=== PATIENT | female | born 1955 | race Hispanic/Latino ===

== ENCOUNTER → 2018-10-09 | Outpatient (CLI) | payer OTHER | END | disposition home or self-care (01) | LOC: RAH 09:02 | PROVIDERS: ATTEND Family Medicine | DX: Z12.31 Encounter for screening mammogram for malignant neoplasm of breast (principal) | CPT/HCPCS: 77067 ==

== ENCOUNTER 2019-01-30 10:58 | Inpatient (IN) | payer OTHER ==
[~2019-01-30] VITALS: Ht 165.1 cm; Wt 68.6 kg
[2019-01-30] MEDS ORDERED: IPRATROPIUM/ALBUTEROL SULFATE 3 ML SOLUTION IH ONE (11:33)
[2019-01-30 11:46] LABS: CREATININE 0.7 mg/dL (0.5-1.5); POTASSIUM 5.3 mmol/L (3.5-5.1)
[2019-01-30 11:47] LABS: BASOPHILS % (AUTO) 0.7 % (0.0-5.0); EOSINOPHILS % (AUTO) 3.1 % (0.0-8.0); HEMATOCRIT 39.5 % (36-48); LYMPHOCYTES % (AUTO) 21.4 % (21.0-51.0); MEAN CORPUSCULAR HEMOGLOBIN 28.3 pg (27.0-33.0); MEAN CORPUSCULAR VOLUME 85.6 fL (79-99); MONOCYTES % (AUTO) 7.1 % (3.0-13.0); NEUTROPHILS % (AUTO) 67.7 % (40.0-77.0); NUCLEATED RED BLOOD CELLS 0.1 % (0.0-0.19); PLATELET COUNT (AUTO) 121 K/uL (130-400); RED BLOOD CELL COUNT(AUTO) 4.61 MIL/uL (4.00-5.50); RED CELL DISTRIBUTION WIDTH 13.2 % (11.0-15.5); WHITE BLOOD COUNT (AUTO) 8.2 K/uL (4.8-10.8)
[2019-01-30 11:59] LABS: ALBUMIN 3.5 g/dL (3.5-5.0); BILIRUBIN,TOTAL 0.4 mg/dL (0.2-1.0); TOTAL PROTEIN, SERUM 6.7 g/dL (6.0-8.3)
[2019-01-30 12:03] LABS: B-TYPE NATRIURETIC PEPTIDE 9 pg/mL (0-100)
[2019-01-30] MEDS ORDERED: SODIUM CHLORIDE 0.9% 100 ML IV ONE (12:08)
[2019-01-30 12:59] LABS: APPEARANCE,URINE Clear (CLEAR); BILIRUBIN,URINE Negative (NEGATIVE); COLOR,URINE Yellow (YELLOW); GLUCOSE, URINE (UA) >=1000 mg/dL (NEGATIVE); KETONES,URINE Negative (NEGATIVE); LEUKOCYTE ESTERASE ,URINE Negative (NEGATIVE); NITRATE,URINE Negative (NEGATIVE); OCCULT BLOOD,URINE Negative (NEGATIVE); PROTEIN,URINE Negative (NEGATIVE); UROBILINOGEN,URINE 0.2 mg/dL (0.2-1.0)
[2019-01-30 13:35] LABS: BACTERIA,URINE None Seen /HPF (None Seen); RBC,URINE None Seen /HPF (0-1); SQUAMOUS EPITHELIAL CELL,UR 0-2 /HPF (0-2); WBC,URINE None Seen /HPF (0-1)
[2019-01-30 13:59] LABS: INR 0.92 (0.85-1.15); PARTIAL THROMBOPLASTIN TIME 21.3 SEC (26.3-35.5); PROTHROMBIN TIME 9.5 SEC (9.6-11.6)
[2019-01-30] MEDS ORDERED: ACETAMINOPHEN 325 MG TAB PO PRN ×2 (14:00)
[2019-01-30] MEDS: AZITHROMYCIN 500MG+NS 250ML 250 ML IV SCH (14:00)
[2019-01-30] MEDS ORDERED: ONDANSETRON HCL 4 MG/2 ML VIAL IV PRN (14:00)
[2019-01-30] MEDS ORDERED: HYDRALAZINE HCL 20 MG/ML VIAL IV PRN (14:00)
[2019-01-30 15:13] LABS: CRP QUANTITATIVE 7.7 mg/L (0.00-9.0)
[2019-01-30] MEDS ORDERED: AZITHROMYCIN 500MG+NS 250ML 250 ML IV ONE (15:27)
[2019-01-30] MEDS ORDERED: CEFTRIAXONE SODIUM 1 GM ONE (15:27)
[2019-01-30] MEDS: METHYLPREDNISOLONE SOD SUCC 125MG/2ML VIAL IVP SCH ×2 (15:45→23:53)
[2019-01-30 15:59] LABS: HEMOGLOBIN A1C 9.2 % (4.0-6.0)
[2019-01-30] MEDS ORDERED: METHYLPREDNISOLONE SOD SUCC 125MG/2ML VIAL ONE (16:43)
[2019-01-30] MEDS ORDERED: SODIUM CHLORIDE 3% FOR INHALATION 4 ML/AMP VIAL.NEB IH ONE (18:09)
[2019-01-30] MEDS: IPRATROPIUM/ALBUTEROL SULFATE 3 ML SOLUTION IH SCH ×2 (18:17→23:55)
[2019-01-30] MEDS ORDERED: IOHEXOL 350 MG/ML 100ML INFUS..BTL IV ONE (18:33)
[2019-01-30 19:40] VITALS: BP 132/68
[2019-01-30] MEDS: FAMOTIDINE/PF 20 MG/2 ML VIAL IV SCH (20:54)
[2019-01-30] MEDS: METOPROLOL TARTRATE 25 MG TAB PO SCH (20:54)
[2019-01-30] MEDS ORDERED: CEFTRIAXONE SODIUM 1 GM IV SCH (21:00)
[2019-01-30] MEDS: PANTOPRAZOLE SODIUM 40 MG TABLET.DR PO SCH (21:00)
[2019-01-30 23:32] VITALS: BP 113/67
[2019-01-31] MEDS ORDERED: CEFTRIAXONE SODIUM 1 GM IV SCH (03:30)
[2019-01-31 03:56] VITALS: BP 127/66
[2019-01-31] MEDS: IPRATROPIUM/ALBUTEROL SULFATE 3 ML SOLUTION IH SCH (06:02)
[2019-01-31 07:00] VITALS: BP 126/67
[2019-01-31] MEDS: METHYLPREDNISOLONE SOD SUCC 125MG/2ML VIAL IVP SCH (07:22)
[2019-01-31] MEDS: METOPROLOL TARTRATE 25 MG TAB PO SCH ×2 (07:39→20:27)
[2019-01-31] MEDS: PANTOPRAZOLE SODIUM 40 MG TABLET.DR PO SCH ×2 (07:40→20:27)
[2019-01-31] MEDS: AZITHROMYCIN 500MG+NS 250ML 250 ML IV SCH (07:40)
[2019-01-31] MEDS: FAMOTIDINE/PF 20 MG/2 ML VIAL IV SCH (09:00)
[2019-01-31] MEDS ORDERED: PNEUMOCOCCAL VACCINE POLYVALENT 0.5 ML/VIAL [PPV] IM ONE (09:00)
[2019-01-31] MEDS ORDERED: METHYLPREDNISOLONE SOD SUCC 125MG/2ML VIAL IVP SCH (09:00)
[2019-01-31] MEDS ORDERED: ENOXAPARIN SODIUM 40 MG/0.4 ML SYRINGE SQ SCH (09:00)
[2019-01-31] MEDS ORDERED: FLU VACC QS2019-20 36MOS UP/PF 60 MCG/0.5 ML ML IM ONE (09:45)
[2019-01-31] MEDS: FUROSEMIDE 10 MG/ML 2ML VIAL IV SCH ×2 (10:30→20:27)
[2019-01-31 11:00] VITALS: BP 120/65
[2019-01-31] MEDS: IPRATROPIUM 0.5 MG/2.5 ML INH IH SCH ×4 (11:17→22:36)
--- NOTE | 2019-01-31 11:24 | NUR ---
DC PLAN VISITED WITH PATIENT. PATIENT LIVES WITH SPOUSE. INDEPENDENT ABLE TO PERFORM ADL'S. PATIENT HAS NO SERVICES OR DME'S. FEELS SAFE TO RETURN HOME. Addendum: 01/31/19 at 1125 by KIT CHU RN CM Amended: Links added.
[2019-01-31] MEDS: INSULIN HUMULIN R 100 UNIT/ML 3ML SQ SCH ×3 (11:30→21:22)
[2019-01-31] MEDS ORDERED: LORAZEPAM 2 MG/ML 1 ML VIAL IVP SCH (12:45)
[2019-01-31] MEDS ORDERED: SODIUM CHLORIDE 3% FOR INHALATION 4 ML/AMP VIAL.NEB IH ONE (14:05)
[2019-01-31] MEDS ORDERED: MILK175T2 PO (14:09)
[2019-01-31] MEDS ORDERED: ICOS1CAP PO (14:09)
[2019-01-31] MEDS ORDERED: LISI40TA4 PO (14:09)
[2019-01-31] MEDS ORDERED: EMPA1TAB15 PO (14:09)
[2019-01-31] MEDS ORDERED: ROSU20TA31 PO (14:09)
[2019-01-31] MEDS ORDERED: INSU200I4 SQ (14:09)
[2019-01-31 15:00] VITALS: BP 134/65
--- NOTE | 2019-01-31 16:00 | NUR ---
DISCONTINUED CLARKE CATHETER. 120ML OUTPUT IN CLARKE. ORDER TO D'C BY ELOISE
--- NOTE | 2019-01-31 16:12 | NUR ---
room 204 O2 extension requested by Hiro YEAGER Pt c/o sob on ambulation. Addendum: 01/31/19 at 1615 by JAMES MISTRY RT Amended: Links added.
[2019-01-31] MEDS: CEFTRIAXONE SODIUM 1 GM IV SCH ×2 (17:40→20:27)
[2019-01-31 20:22] VITALS: BP 121/60
[2019-02-01] VITALS (7 sets, daily range): BP systolic 109–136; BP diastolic 61–77
[2019-02-01] MEDS: IPRATROPIUM 0.5 MG/2.5 ML INH IH SCH ×6 (01:34→21:50)
[2019-02-01 03:36] LABS: BASOPHILS % (AUTO) 0.6 % (0.0-5.0); EOSINOPHILS % (AUTO) 1.1 % (0.0-8.0); HEMATOCRIT 34.8 % (36-48); LYMPHOCYTES % (AUTO) 15.6 % (21.0-51.0); MEAN CORPUSCULAR HEMOGLOBIN 28.2 pg (27.0-33.0); MEAN CORPUSCULAR HGB CONC 33.3 g/dL (32.0-36.0); MEAN CORPUSCULAR VOLUME 84.7 fL (79-99); MONOCYTES % (AUTO) 7.7 % (3.0-13.0); NUCLEATED RED BLOOD CELLS 0.1 % (0.0-0.19); PLATELET COUNT (AUTO) 109 K/uL (130-400); RED BLOOD CELL COUNT(AUTO) 4.11 MIL/uL (4.00-5.50); RED CELL DISTRIBUTION WIDTH 13.5 % (11.0-15.5); WHITE BLOOD COUNT (AUTO) 9.7 K/uL (4.8-10.8)
[2019-02-01 03:45] LABS: CREATININE 0.8 mg/dL (0.5-1.5); POTASSIUM 4.4 mmol/L (3.5-5.1)
[2019-02-01] MEDS ORDERED: LORAZEPAM 2 MG/ML 1 ML VIAL IVP ONE (04:45)
[2019-02-01] MEDS: INSULIN HUMULIN R 100 UNIT/ML 3ML SQ SCH ×4 (06:08→21:08)
[2019-02-01] MEDS: METOPROLOL TARTRATE 25 MG TAB PO SCH ×4 (09:00→20:06)
[2019-02-01] MEDS: CEFTRIAXONE SODIUM 1 GM IV SCH ×2 (09:56→20:04)
[2019-02-01] MEDS: PANTOPRAZOLE SODIUM 40 MG TABLET.DR PO SCH ×2 (09:57→20:06)
[2019-02-01] MEDS: FUROSEMIDE 10 MG/ML 2ML VIAL IV SCH ×2 (09:59→20:04)
[2019-02-01] MEDS: LORAZEPAM 2 MG/ML 1 ML VIAL IVP SCH (13:27)
[2019-02-01] MEDS: AZITHROMYCIN 500MG+NS 250ML 250 ML IV SCH (17:47)
--- NOTE | 2019-02-01 22:00 | NUR ---
PT IN BED, MEDICATIONS GIVEN DIRECTED. PT STATES SHE IS PENDING TO SPEAK TO DOCTOR REGARDING BONE SCAN RESULTS. PT STATES NO CONCERNS AT THIS TIME.
[2019-02-02] MEDS: IPRATROPIUM 0.5 MG/2.5 ML INH IH SCH ×6 (01:38→21:31)
[2019-02-02 03:41] VITALS: BP 125/69
[2019-02-02 04:56] LABS: HEMATOCRIT 37.6 % (36-48); MEAN CORPUSCULAR HEMOGLOBIN 27.9 pg (27.0-33.0); MEAN CORPUSCULAR VOLUME 84.6 fL (79-99); NUCLEATED RED BLOOD CELLS 0.2 % (0.0-0.19); PLATELET COUNT (AUTO) 109 K/uL (130-400); RED BLOOD CELL COUNT(AUTO) 4.45 MIL/uL (4.00-5.50); RED CELL DISTRIBUTION WIDTH 13.2 % (11.0-15.5); WHITE BLOOD COUNT (AUTO) 9.1 K/uL (4.8-10.8)
[2019-02-02 05:06] LABS: CREATININE 0.7 mg/dL (0.5-1.5); POTASSIUM 4.4 mmol/L (3.5-5.1)
[2019-02-02] MEDS: INSULIN HUMULIN R 100 UNIT/ML 3ML SQ SCH ×4 (06:50→21:16)
[2019-02-02] MEDS: LORAZEPAM 2 MG/ML 1 ML VIAL IVP SCH (06:53)
[2019-02-02 07:07] VITALS: BP 118/60
[2019-02-02] MEDS: METOPROLOL TARTRATE 25 MG TAB PO SCH ×3 (07:07→19:46)
[2019-02-02] MEDS: PANTOPRAZOLE SODIUM 40 MG TABLET.DR PO SCH ×2 (07:07→19:46)
[2019-02-02] MEDS: CEFTRIAXONE SODIUM 1 GM IV SCH ×2 (07:08→19:46)
[2019-02-02] MEDS: FUROSEMIDE 10 MG/ML 2ML VIAL IV SCH ×2 (07:08→19:46)
--- NOTE | 2019-02-02 07:35 | NUR ---
ASSESSMENT PT IS AWAKE AND ALERT, RESTING IN BED. DENIES CP DENIES SOB DENIES NV. NO VISIBLE SIGNS OF DISTRESS NOTED. BREATHING PATTERN IS EVEN AND UNLABORED. AM MEDS GIVEN, FAMILY IS AT BEDSIDE. CALL LIGHT WITHIN REACH.
[2019-02-02 11:01] VITALS: BP 116/64
--- NOTE | 2019-02-02 12:45 | NUR ---
DR HOLLIDAY ROUNDED SAW PATIEN, UPDATES GIVEN.
[2019-02-02] MEDS: AZITHROMYCIN 500MG+NS 250ML 250 ML IV SCH (13:32)
--- NOTE | 2019-02-02 14:00 | NUR ---
DC PLAN PATIENT HAD BONE SCAN HAS EXTENSIVE METS. ECHO 50%. NO CONCRETE RESPIRATORY RECS. PENDING CONSULT REC FOR DISCHARGE. Addendum: 02/02/19 at 1404 by KIT CHU RN CM Amended: Links added.
[2019-02-02 15:01] VITALS: BP 111/61
--- NOTE | 2019-02-02 17:20 | NUR ---
STATUS PT RESTING IN BED DENIES CP DENIES SOB DENIES NV NO COMPLAINTS, CALL LIGHT WITHIN REACH.,
[2019-02-02] MEDS ORDERED: PNEUMOCOCCAL VACCINE POLYVALENT 0.5 ML/VIAL [PPV] ONE (19:42)
[2019-02-02 19:53] VITALS: BP 121/77
--- NOTE | 2019-02-02 22:00 | NUR ---
PT STATES CONCERN OVER NOT BEING ALLOWED TO AMBULATE. I STATES SHE IS ABLE TO AMBULATE IF NECESSARY. PT HAS MINIMAL GBW. ABLE TO AMBULATE TO RR. NO LONGER EXPERIENCING INCREASED SOB. ABLE TO TAKE MEDICATIONS DIRECTED. NO DISTRESS NOTED. WILL NOTIFY NURSE IN THE AM. NO PT EVAL AT THIS TIME.
[2019-02-02 23:35] VITALS: BP 124/62
[2019-02-03] VITALS (11 sets, daily range): BP systolic 98–124; BP diastolic 55–75
[2019-02-03] MEDS: IPRATROPIUM 0.5 MG/2.5 ML INH IH SCH ×6 (01:26→21:59)
[2019-02-03 03:39] LABS: HEMATOCRIT 36.1 % (36-48); MEAN CORPUSCULAR HEMOGLOBIN 27.6 pg (27.0-33.0); MEAN CORPUSCULAR HGB CONC 33.2 g/dL (32.0-36.0); MEAN CORPUSCULAR VOLUME 83.3 fL (79-99); NUCLEATED RED BLOOD CELLS 0.1 % (0.0-0.19); PLATELET COUNT (AUTO) 111 K/uL (130-400); RED BLOOD CELL COUNT(AUTO) 4.33 MIL/uL (4.00-5.50); RED CELL DISTRIBUTION WIDTH 13.6 % (11.0-15.5); WHITE BLOOD COUNT (AUTO) 8.3 K/uL (4.8-10.8)
[2019-02-03 03:46] LABS: CREATININE 0.8 mg/dL (0.5-1.5); POTASSIUM 4.3 mmol/L (3.5-5.1)
[2019-02-03] MEDS: INSULIN HUMULIN R 100 UNIT/ML 3ML SQ SCH ×4 (06:53→21:39)
[2019-02-03] MEDS: PANTOPRAZOLE SODIUM 40 MG TABLET.DR PO SCH ×2 (09:23→21:33)
[2019-02-03] MEDS: CEFTRIAXONE SODIUM 1 GM IV SCH ×2 (09:24→21:32)
[2019-02-03] MEDS: FUROSEMIDE 10 MG/ML 2ML VIAL IV SCH ×2 (09:24→21:32)
[2019-02-03] MEDS: METOPROLOL TARTRATE 25 MG TAB PO SCH ×3 (09:24→21:32)
[2019-02-03] MEDS: LORAZEPAM 2 MG/ML 1 ML VIAL IVP SCH (09:26)
--- NOTE | 2019-02-03 09:27 | NUR ---
DR. Kinsey SAHA IN ROOM SPEAKING WITH PT. AND FEMALE FAMILY MEMBER AT BEDSIDE RE:PLAN OF CARE. QUESTIONS ANSWERED BY DR. SAHA; VERBALIZED MUTUAL UNDERSTANDING.
[2019-02-03] MEDS: AZITHROMYCIN 500MG+NS 250ML 250 ML IV SCH (13:30)
--- NOTE | 2019-02-03 14:05 | NUR ---
TO CT SCAN VIA BED WITH O2 IN PLACE, ACCOMPANIED BY KULDIP, ARMOR SENIOR SERGEANT.
--- NOTE | 2019-02-03 15:12 | NUR ---
RETURNED TO ROOM VIA BED ACCOMPANIED BY KULDIP, ACID CONDENSER. PT. AAOX3, RESP.'S EVEN AND UNLABORED. DENIES ANY C/O SOB, DENIES ANY CURRENT PAIN. RIGHT LOWER BACK/LUMBAR AREA WITH LIGHT DRSG IN PLACE, D/I. CALL LIGHT WITHIN REACH.
--- NOTE | 2019-02-03 15:30 | NUR ---
CT GD BONE MARROW ASP/BX PROCEDURE PERFORMED BY DR Manish FRANZ. PUNCTURE SITE RT BUTTOCK AND PATIENT TOLERATED PROCEDURE WELL. UNALBE TO ASPIRATE BONE MARROW BUT CORE SAMPLE COLLECTED IN [facility] AND SENT TO LAB. END OF PROCEDURE AT 1515. BIOPSY NEEDLE REMOVED AND DRESSING APPLIED. NO BLEEDING NOTED. REPORT GIVEN TO Dank ARENAS RN AND PATIENT TRANSPORTED TO [facility] VIA BED AT 1530. AAO X3 WITH NO C/O PAIN.
--- NOTE | 2019-02-03 17:30 | NUR ---
SITTING UP IN BED EATING DINNER W/O C/O. DRSG TO LUMBAR AREA CONTINUES IN PLACE, D/I. DENIES ANY C/O AT THIS TIME. CALL LIGHT WITHIN REACH.
--- NOTE | 2019-02-03 19:34 | NUR ---
ASSESSMENT PATIENT IS RESTING IN THE CHAIR. NO COMPLAINTS OF PAIN AT THIS TIME. NO SIGNS OF DISTRESS. NO SHORTNESS OF BREATH. S/P BIOPSY TO LUMBAR AREA. CLEAN DRY AND INTACT. CALL LIGHT WITHIN REACH. REINFORCED PATIENT TO CALL FOR ANY NEEDS. NO QUESTIONS, CONCERNS, OR NEEDS AT THIS TIME.
[2019-02-04] MEDS: IPRATROPIUM 0.5 MG/2.5 ML INH IH SCH ×6 (02:00→21:35)
[2019-02-04 03:33] VITALS: BP 112/63
[2019-02-04 03:34] LABS: MEAN CORPUSCULAR HEMOGLOBIN 27.8 pg (27.0-33.0); MEAN CORPUSCULAR HGB CONC 33.3 g/dL (32.0-36.0); MEAN CORPUSCULAR VOLUME 83.3 fL (79-99); NUCLEATED RED BLOOD CELLS 0.2 % (0.0-0.19); PLATELET COUNT (AUTO) 112 K/uL (130-400); RED BLOOD CELL COUNT(AUTO) 4.32 MIL/uL (4.00-5.50); RED CELL DISTRIBUTION WIDTH 13.3 % (11.0-15.5); WHITE BLOOD COUNT (AUTO) 8.1 K/uL (4.8-10.8)
[2019-02-04 03:39] LABS: CREATININE 0.8 mg/dL (0.5-1.5); POTASSIUM 4.1 mmol/L (3.5-5.1)
[2019-02-04] MEDS: INSULIN HUMULIN R 100 UNIT/ML 3ML SQ SCH ×4 (06:12→21:33)
[2019-02-04 07:47] VITALS: BP 126/66
[2019-02-04] MEDS: CEFTRIAXONE SODIUM 1 GM IV SCH ×2 (09:11→21:17)
[2019-02-04] MEDS: FUROSEMIDE 10 MG/ML 2ML VIAL IV SCH ×2 (09:12→21:18)
[2019-02-04] MEDS: PANTOPRAZOLE SODIUM 40 MG TABLET.DR PO SCH ×2 (09:13→21:17)
[2019-02-04] MEDS: METOPROLOL TARTRATE 25 MG TAB PO SCH ×3 (09:14→21:17)
[2019-02-04] MEDS: LORAZEPAM 2 MG/ML 1 ML VIAL IVP SCH (09:45)
[2019-02-04] MEDS ORDERED: PANT40TA PO (12:02)
[2019-02-04] MEDS ORDERED: FURO20TA4 PO (12:02)
[2019-02-04] MEDS ORDERED: METO25 PO (12:02)
[2019-02-04 12:17] VITALS: BP 105/58
--- NOTE | 2019-02-04 15:14 | NUR ---
MI STARLA SPOKE TO DR. SORIANO SIGNED FORMS FOR 204 AROUND 2PM. CATHERINE HAD SIGNED OFF BUT WERE RECONSULTED THIS MORNING DUE TO PATIENT NEEDING OXYGEN. SPOKE TO PATIENT AND FAMILY. DID NOT WANT [facility] PATIENT BELIEVE THAT ITS [facility]. EXPLAINED THAT IT WAS NOT BUT COULD NOT CONVINCE DAUGHTER OF THAT. SAID WILL GO WITH [facility] AND ANY IN NETWORK. SENT PACKET TO [facility]. CALLED TO MAKE SURE THEY HAD GOTTEN PACKET SAID THEY DID BUT NOT IN NETWORK AND THAT THERE WAS NO CLEAR DIAGNOSIS. SPOKE TO FERNIE ALBRECHT TRIED TO EXPLAIN REGARDING DIAGNOSIS. FIRST SAID NOT THEIR PATIENT. EXPLAINED THAT THEY HAD S.O BUT WERE RECONSULTED THIS MORNING SINCE IT WAS STILL RESPIRATORY RELATED AND PATIENT NEEDING O2. THEN SAID THAT SHE DID NOT HAVE ON LIST EXPLAINED THAT RE CONSULT WAS PLACED THIS MORNING. SAID NEVER RECEIVED CALL OF RE CONSULT. LET HER KNOW THAT I SPOKE TO NURSE AND PRODUCTION OR PLANT ENGINEER THIS MORNING AND THEY HAD CALLED IN CONSULT. SAID THAT SHE DID NOT KNOW PATIENT AND HAD NEVER SEEN PATIENT. LET HER KNOW THAT CATHERINE HAD SIGNED OFF BUT THAT THEY HAD SEEN PATIENT. I HAD NOTES FROM HER REGARDING PATIENT. TRIED TO LET HER KNOW I HAD THE NOTES BUT SAID SHE WAS VERY BUSY AND HAD A LOT OF PATIENT TO SEE. WENT TO SEE NURSE TO LET HER KNOW SITUATION. FERNIE ALBRECHT ARRIVED TO AREA. ONCE AGAIN ATTEMPTED TO EXPLAIN SITUATION. SAID THAT SHE HAD SENT DR. SORIANO A MESSAGE AND THAT SHE DID NOT SEE PATIENT. LET HER KNOW THAT YES DR. SORIANO HAD VISITED WITH PATIENT ALREADY BUT THAT I STILL NEEDED A PULMONARY DIAGNOSIS FOR OXYGEN.THAT I NEEDED IT FOR PATIENT TO BE ABLE TO DISCHARGE. LET HER KNOW I HAD PREVIOUS NOTES, H AND P , RT EVAL AND XRAYS. DR. SORIANO CONTACTED HER AND GAVE HER A DIAGNOSIS OF CANCER TO LUNG. SHE SHOWED ME HER PHONE WITH DIAGNOSIS. LET HER KNOW THAT I WOULD PLACE ON DR. SORIANO ORDER THAT HE HAD SIGNED ALREADY. SHOWED HER THE FORM. INFO THEN SENT TO [facility]. [facility] NOT GOING THROUGH CALLED GOT ANOTHER FAX NUMBER [phone] Addendum: 02/04/19 at 1527 by KIT CHU RN CM Amended: Links added.
--- NOTE | 2019-02-04 15:25 | NUR ---
RD NOTIFICATION DX: RESPIRATORY FAILURE. HX: DM, HTN, HYPERLIPIDEMIA. DIET: GI SOFT/BLAND. PO INTAKE 100% AND HAS GREAT APPETITE PER PT. LBM: 02/04. PT STATED SHE HAS NEVER BEEN EDUCATED IN THE PAST REGARDING A DM DIET. PT CHECKS HER BG REGULARLY AND TAKES HER MEDICATIONS. PT DOES NOT FOLLOW ANY DIET AT HOME. PT TRIES TO EAT SMALLER PORTIONS. RD PROVIDED DM DIET AND NUTRITION EDUCATION. PT AND DAUGHTER ASKED QUESTIONS, RD ANSWERED AND PT VERBALIZED UNDERSTANDING. EDUCATION MATERIALS PROVIDED. RD RECOMMENDS CONTINUE CURRENT DIET, ADD [id number] TO DIET ORDER. RD PROVIDED DM DIET AND NUTRITION EDUCATION. RD WILL FOLLOW UP NEEDED. THANK YOU. MELANIE STOLL MS, RDN Addendum: 02/04/19 at [address] RD Amended: Links added.
[2019-02-04 15:26] VITALS: BP 105/63
--- NOTE | 2019-02-04 15:26 | NUR ---
DIET EDUCATION PT STATED SHE HAS NEVER BEEN EDUCATED IN THE PAST REGARDING A DM DIET. PT CHECKS HER BG REGULARLY AND TAKES HER MEDICATIONS. PT DOES NOT FOLLOW ANY DIET AT HOME. PT TRIES TO EAT SMALLER PORTIONS. REZA PROVIDED DM DIET AND NUTRITION EDUCATION. PT AND DAUGHTER ASKED QUESTIONS, RD ANSWERED AND PT VERBALIZED UNDERSTANDING. EDUCATION MATERIALS PROVIDED. Addendum: 02/04/19 at [address] Amended: Links added.
--- NOTE | 2019-02-04 16:57 | NUR ---
RUDDY CHA CALLED [facility] AGAIN AT 1648 NO ANSWER CALLED SECOND PHONE NUMBER SAID THEY RECEIVED EVERYTHING NOTING THAT IT WAS PENDING FOR DISCHARGE. Addendum: 02/04/19 at 1658 by KIT CHU RN CM Amended: Links added.
[2019-02-04 19:38] VITALS: BP 117/54
[2019-02-04 23:31] VITALS: BP 128/63
[2019-02-05] MEDS: IPRATROPIUM 0.5 MG/2.5 ML INH IH SCH ×4 (02:25→14:34)
[2019-02-05 04:03] VITALS: BP 120/60
[2019-02-05 04:25] LABS: HEMATOCRIT 34.9 % (36-48); MEAN CORPUSCULAR HEMOGLOBIN 27.8 pg (27.0-33.0); MEAN CORPUSCULAR HGB CONC 33.5 g/dL (32.0-36.0); NUCLEATED RED BLOOD CELLS 0.3 % (0.0-0.19); PLATELET COUNT (AUTO) 98 K/uL (130-400); RED CELL DISTRIBUTION WIDTH 12.8 % (11.0-15.5); WHITE BLOOD COUNT (AUTO) 8.2 K/uL (4.8-10.8)
[2019-02-05 04:26] LABS: CREATININE 0.8 mg/dL (0.5-1.5); POTASSIUM 4.3 mmol/L (3.5-5.1)
[2019-02-05] MEDS: INSULIN HUMULIN R 100 UNIT/ML 3ML SQ SCH ×2 (06:39→11:42)
[2019-02-05 08:16] VITALS: BP 130/70
[2019-02-05] MEDS: CEFTRIAXONE SODIUM 1 GM IV SCH (09:38)
[2019-02-05] MEDS: PANTOPRAZOLE SODIUM 40 MG TABLET.DR PO SCH (09:38)
[2019-02-05] MEDS: METOPROLOL TARTRATE 25 MG TAB PO SCH (09:38)
[2019-02-05] MEDS: FUROSEMIDE 10 MG/ML 2ML VIAL IV SCH (09:38)
[2019-02-05] MEDS: LORAZEPAM 2 MG/ML 1 ML VIAL IVP SCH (09:39)
--- NOTE | 2019-02-05 10:33 | NUR ---
OXYGEN UPDATE PER LILIANA RIDER, PATIENT HAS BEEN APPROVED FOR HOME OXYGEN. LOCAL OFFICE WILL MAKE CONTACT WITH PATIENT OR DAUGHTER AND DELIVER EQUIPMENT.
[2019-02-05] MEDS ORDERED: METO50 PO (10:40)
[2019-02-05] MEDS ORDERED: METOPROLOL TARTRATE 50 MG TAB ONE (11:21)
--- NOTE | 2019-02-05 11:23 | NUR ---
HR 130'S DR SAHA INCREASED DOSE OF METOPROLOL FROM 37.5MG TO 50MG PO TID. DR SAHA WANTS DOSE TO BE GIVEN NOW.
[2019-02-05 11:55] VITALS: BP 122/69
[2019-02-05] MEDS ORDERED: METOPROLOL TARTRATE 50 MG TAB PO SCH (14:00)
--- NOTE | 2019-02-05 14:42 | NUR ---
OXYGEN APPROVED PER YUN WITH [facility], HOME OXYGEN HAS BEEN APPROVED. APRIA YARDING ENGINEER IS CONTACTING DAUGHTER FOR HOME DELIVERY. PENDING DC HOME TODAY.
[2019-02-05 16:14] VITALS: BP 140/70
[2019-02-23] MEDS ORDERED: METO25TA6 PO (02:34)
[2019-02-23] MEDS ORDERED: ASCO100033 PO (02:34)
[2019-03-09] MEDS ORDERED: MEGE400O4 PO (07:14)
== END 2019-02-05 16:52 | disposition home or self-care (01) | DRG 193 ==
LOC: EDH 10:58 → EDHIP 10:59 → 2AH 19:26
PROVIDERS: ADMIT Internal Medicine; ATTEND Internal Medicine
PROC: 07DR3ZX Extraction of Iliac Bone Marrow, Percutaneous Approach, Diagnostic (ICD-10-PCS; 2019-02-03)
PROC: 3E0234Z Introduction of Serum, Toxoid and Vaccine into Muscle, Percutaneous Approach (ICD-10-PCS; principal; 2019-02-05)
PROC: 3E02340 Introduction of Influenza Vaccine into Muscle, Percutaneous Approach (ICD-10-PCS; 2019-02-05)
PROC: 5A09357 Assistance with Respiratory Ventilation, Less than 24 Consecutive Hours, Continuous Positive Airway Pressure (ICD-10-PCS; 2019-02-05)
DX: J18.9 Pneumonia, unspecified organism (principal); J96.01 Acute respiratory failure with hypoxia; C79.51 Secondary malignant neoplasm of bone; J98.11 Atelectasis; J90 Pleural effusion, not elsewhere classified; I31.3 Pericardial effusion (noninflammatory); J81.1 Chronic pulmonary edema; R63.4 Abnormal weight loss; R91.8 Other nonspecific abnormal finding of lung field; D69.6 Thrombocytopenia, unspecified; M89.9 Disorder of bone, unspecified; E78.2 Mixed hyperlipidemia; E87.5 Hyperkalemia; C80.1 Malignant (primary) neoplasm, unspecified; E11.9 Type 2 diabetes mellitus without complications; F19.90 Other psychoactive substance use, unspecified, uncomplicated; I10 Essential (primary) hypertension; K21.9 Gastro-esophageal reflux disease without esophagitis; K76.0 Fatty (change of) liver, not elsewhere classified; N39.3 Stress incontinence (female) (male); Z87.01 Personal history of pneumonia (recurrent); Z90.710 Acquired absence of both cervix and uterus; Z23 Encounter for immunization; Z68.25 Body mass index [BMI] 25.0-25.9, adult
CPT/HCPCS: 27040; 36415; 71045; 71046; 71250; 71275; 74176; 77012; 78306; 80048; 80053; 81001; 82270; 82378; 82550; 82947; 82948; 83036; 83605; 83880; 84132; 84145; 84156; 84166; 84484; 85025; 85027; 85378; 85610; 85651; 85730; 86140; 86316; 86325; 86334; 87040; 87071; 87205; 87804; 88305; 88311; 90732; 93005; 93306; 94640; 94660; 94664; 94760; 99291; A9503; G0378; J0456; J0696; J1650; J1815; J1940; J2060; J2405; J2930; J3490; Q2035; Q9967

== ENCOUNTER 2019-03-02 07:15 | Day surgery (SDC) | payer OTHER ==
[~2019-03-02] VITALS: Ht 152.4 cm; Wt 63.5 kg
[~2019-03-02 07:15] MED LIST: ASCO100033 PO; EMPA1TAB15 PO; FURO20TA4 PO; INSU200I4 SQ; LISI40TA4 PO; METO25TA6 PO; MILK175T2 PO; PANT40TA PO
[2019-03-02 07:42] VITALS: BP 118/52
[2019-03-02 08:06] LABS: INR 0.95 (0.85-1.15); PARTIAL THROMBOPLASTIN TIME 22.8 SEC (26.3-35.5)
[2019-03-02] MEDS ORDERED: SODIUM CHLORIDE 0.9% 1000ML 1,000 ML IV ONE (09:06)
[2019-03-02 09:28] LABS: EOSINOPHILS % (AUTO) 1.7 % (0.0-8.0); HEMATOCRIT 29.9 % (36-48); LYMPHOCYTES % (AUTO) 29.7 % (21.0-51.0); MEAN CORPUSCULAR HEMOGLOBIN 27.6 pg (27.0-33.0); MEAN CORPUSCULAR VOLUME 83.8 fL (79-99); MONOCYTES % (AUTO) 12.3 % (3.0-13.0); NEUTROPHILS % (AUTO) 55.3 % (40.0-77.0); NUCLEATED RED BLOOD CELLS 0.5 % (0.0-0.19); PLATELET COUNT (AUTO) 55 K/uL (130-400); RED BLOOD CELL COUNT(AUTO) 3.57 MIL/uL (4.00-5.50); RED CELL DISTRIBUTION WIDTH 13.5 % (11.0-15.5); WHITE BLOOD COUNT (AUTO) 5.7 K/uL (4.8-10.8)
[2019-03-02] MEDS ORDERED: FENTANYL CITRATE PF 50 MCG/1 ML 2ML VIAL ONE (09:59)
[2019-03-02] MEDS ORDERED: LIDOCAINE HCL 1% MDV 50ML VIAL ONE (09:59)
[2019-03-02] MEDS ORDERED: MIDAZOLAM HCL 1 MG/ML 2ML VIAL ONE (09:59)
[2019-03-02] MEDS ORDERED: LIDOCAINE 1%-EPI 1:100,000 20 ML VIAL IJ ONE (10:00)
--- NOTE | 2019-03-02 10:04 | NUR ---
CALLED DR. HOLLIDAY AND HE IS AWARE THAT PORTCATH/PICC LINE WAS NOT DONE, PER DR. RICHARDSON. DR. RICHARDSON THOUGHT PT IS NOT STABLE. PT. UNABLE TO LAYFLAT ON TABLE TO DO PROCEDURE. PT. IS ON 4 LITERS, NC AND HR 120'S. PER DR. HOLLIDAY PT. SENT TO HIS OFFICE TO GET A NEW REFERRAL TO GO [place] [facility] [place].
--- NOTE | 2019-03-02 10:32 | NUR ---
PER DELMY GARZON FOR TILE HELPER, DR. RICHARDSON COULD NOT DO PORTCATH OR PICC LINE D/T PT NOT ABLE TO LAY FLAT AND HR 120'S. PT HAS SOB AND IS ON 4 LITERS NC.
--- NOTE | 2019-03-02 10:43 | NUR ---
PT. LEFT VIA WHEELCHAIR ON HOME O2 AT 4 LITTERS, IN PVT CAR. TO GO TO DR. HOLLIDAY OFFICE. NO COMPLICATIONS UPON D/C.
[2019-03-09] MEDS ORDERED: MEGE400O4 PO (07:14)
== END 2019-03-02 10:45 | disposition home or self-care (01) ==
LOC: DAH 07:15
PROVIDERS: ATTEND Internal Medicine Hematology & Oncology
DX: Z45.2 Encounter for adjustment and management of vascular access device (principal); Z53.8 Procedure and treatment not carried out for other reasons; C80.1 Malignant (primary) neoplasm, unspecified; C79.51 Secondary malignant neoplasm of bone; E11.9 Type 2 diabetes mellitus without complications; E78.5 Hyperlipidemia, unspecified; I10 Essential (primary) hypertension; E66.9 Obesity, unspecified; K21.9 Gastro-esophageal reflux disease without esophagitis; Z98.890 Other specified postprocedural states; Z90.710 Acquired absence of both cervix and uterus; Z79.4 Long term (current) use of insulin; Z79.899 Other long term (current) drug therapy; Z83.3 Family history of diabetes mellitus; Z68.27 Body mass index [BMI] 27.0-27.9, adult
CPT/HCPCS: 36415; 82948; 85025; 85610; 85730; A4215; A4221; A4222; A4223; A4663; J1644; J3490; J7030; J2250; J3010